=== PATIENT | female | born 1995 | race American Indian/Alaskan Native ===

== ENCOUNTER 2020-04-27 11:56 | Emergency (ER) | payer OTHER ==
--- NOTE | 2020-04-27 12:23 | Emergency Department Report ---
ED Back Pain/Injury HPI - General Chief Complaint: Back Pain/Injury Stated Complaint: WEAKNESS Time Seen by Provider: 04/27/20 12:13 Source: patient Limitations: No Limitations - History of Present Illness Initial Comments: This is a 25-year-old female nontoxic, well nourished in appearance, no acute signs of distress presents to the ED with c/o of acute on chronic lower back p ain. Patient stated that the past 2 days he was moving and developed this pain. Patient also has a secondary complaint of generalized weakness. Patient stated has history of anemia. Patient is tachycardic in the ER. Patient denies any radiation of pain. Patient denies any trauma. Denies any bladder or bowel instability. Patient denies any urinary symptoms. Denies any fever, chills, nausea, vomiting, headache, stiff neck, chest pain or shortness of breath. Patient denies any numbness or tingling. Denies any allergies. Denies significant past medical history. MD Complaint: back pain -: days(s) Similar Symptoms Previously: Yes Radiation: none Severity: mild Severity scale (0 -10): 3 Quality: aching Consistency: intermittent Improves With: immobilization, sitting upright Worsens With: movement, walking Context: while lifting, turning/twisting Associated Symptoms: weakness. denies: confusion, chest pain, numbness, difficulty walking, cough, difficulty urinating, diaphoresis, incontinence, fever/chills, constipation, headaches, abdominal pain, loss of appetite, malaise, nausea/vomiting, rash, seizure, shortness of breath, syncope - Related Data Previous Rx's Medication Instructions Recorded Last Taken Type cephALEXin [Keflex] 500 mg PO Q8HR #21 cap 04/27/20 Unknown Rx Allergies Allergy/AdvReac Type Severity Reaction Status Date / Time No Known Allergies Allergy Unverified 04/27/20 12:15 ED Review of Systems ROS: Stated complaint: WEAKNESS Other details as noted in HPI Comment: All other systems reviewed and negative Constitutional: weakness. denies: chills, fever Eyes: denies: eye pain, eye discharge, vision change ENT: denies: ear pain, throat pain Respiratory: denies: cough, shortness of breath, wheezing Cardiovascular: denies: chest pain, palpitations Endocrine: no symptoms reported Gastrointestinal: denies: abdominal pain, nausea, diarrhea Genitourinary: denies: urgency, dysuria, discharge Musculoskeletal: back pain. denies: joint swelling, arthralgia Skin: denies: rash, lesions Neurological: denies: headache, weakness, paresthesias Psychiatric: denies: anxiety, depression Hematological/Lymphatic: denies: easy bleeding, easy bruising ED Past Medical Hx - Past Medical History Previous Medical History?: No - Surgical History Past Surgical History?: No - Social History Smoking Status: Never Smoker Substance Use Type: None - Medications Home Medications: Home Medications Medication Instructions Recorded Confirmed Last Taken Type cephALEXin [Keflex] 500 mg PO Q8HR #21 cap 04/27/20 Unknown Rx ED Physical Exam - General Limitations: No Limitations General appearance: alert, in no apparent distress - Head Head exam: Present: atraumatic, normocephalic - Eye Eye exam: Present: normal appearance - Neck Neck exam: Present: normal inspection, full ROM. Absent: tenderness, meningismus, lymphadenopathy - Respiratory Respiratory exam: Present: normal lung sounds bilaterally. Absent: respiratory distress, wheezes, rales, rhonchi, stridor, chest wall tenderness, accessory muscle use, decreased breath sounds, prolonged expiratory - Cardiovascular Cardiovascular Exam: Present: normal rhythm, tachycardia, normal heart sounds. Absent: systolic murmur, diastolic murmur, rubs, gallop - GI/Abdominal GI/Abdominal exam: Present: soft, normal bowel sounds. Absent: distended, tenderness, guarding, rebound, rigid, diminished bowel sounds - Extremities Exam Extremities exam: Present: normal inspection, full ROM, normal capillary refill. Absent: tenderness - Back Exam Back exam: Present: normal inspection, full ROM, paraspinal tenderness (Left lumbar paraspinal). Absent: tenderness, CVA tenderness (R), CVA tenderness (L), muscle spasm, vertebral tenderness, rash noted - Expanded Back Exam Expanded Back exam: Absent: saddle anesthesia Back exam: Negative Straight Leg Raising: Left, Right - Neurological Exam Neurological exam: Present: alert, oriented X3, normal gait - Psychiatric Psychiatric exam: Present: normal affect, normal mood - Skin Skin exam: Present: warm, dry, intact, normal color. Absent: rash ED Course Vital Signs 04/27/20 04/27/20 12:13 15:09 Temperature 98.3 F Pulse Rate 115 H 105 H Respiratory 18 18 Rate Blood Pressure 154/86 Blood Pressure 140/90 [Left] O2 Sat by Pulse 100 98 Oximetry - Reevaluation(s) Reevaluation #1: 04/27/20 13:14 Patient is speaking in full sentences with no signs of distress noted. ED Medical Decision Making - Lab Data Result diagrams: 04/27/20 12:39 04/27/20 12:39 Lab Results 04/27/20 04/27/20 04/27/20 Range/Units 12:39 12:39 12:39 WBC 8.6 (4.5-11.0) K/mm3 RBC 4.61 (3.65-5.03) M/mm3 Hgb 11.1 (10.1-14.3) gm/dl Hct 35.5 (30.3-42.9) % MCV 77 L (79-97) fl MCH 24 L (28-32) pg MCHC 31 (30-34) % RDW 17.0 H (13.2-15.2) % Plt Count 380 (140-440) K/mm3 Lymph % (Auto) 26.5 (13.4-35.0) % [place] % (Auto) 5.7 (0.0-7.3) % Eos % (Auto) 6.6 H (0.0-4.3) % Baso % (Auto) 0.7 (0.0-1.8) % Lymph # (Auto) 2.3 (1.2-5.4) K/mm3 [place] # (Auto) 0.5 (0.0-0.8) K/mm3 Eos # (Auto) 0.6 H (0.0-0.4) K/mm3 Baso # (Auto) 0.1 (0.0-0.1) K/mm3 Seg Neutrophils % 60.5 (40.0-70.0) % Seg Neutrophils # 5.2 (1.8-7.7) K/mm3 Sodium 143 (137-145) mmol/L Potassium 3.8 (3.6-5.0) mmol/L Chloride 105.3 (98-107) mmol/L Carbon Dioxide 29 (22-30) mmol/L Anion Gap 13 mmol/L BUN 9 (7-17) mg/dL Creatinine 0.7 (0.6-1.2) mg/dL Estimated GFR > 60 ml/min BUN/Creatinine Ratio 13 % Glucose 94 (65-100) mg/dL Calcium 9.1 (8.4-10.2) mg/dL HCG, Qual Negative (Negative) Urine Color (Yellow) Urine Turbidity (Clear) Urine pH (5.0-7.0) Ur Specific [place] (1.003-1.030) Urine Protein (Negative) mg/dL Urine Glucose (UA) (Negative) mg/dL Urine Ketones (Negative) mg/dL Urine Blood (Negative) Urine Nitrite (Negative) Urine Bilirubin (Negative) Urine Urobilinogen (<2.0) mg/dL Ur Leukocyte Esterase (Negative) Urine WBC (Auto) (0.0-6.0) /HPF Urine RBC (Auto) (0.0-6.0) /HPF U Epithel Cells (Auto) (0-13.0) /HPF Calcium Oxalate Crystal Urine Mucus /HPF 04/27/20 Range/Units 14:23 WBC (4.5-11.0) K/mm3 RBC (3.65-5.03) M/mm3 Hgb (10.1-14.3) gm/dl Hct (30.3-42.9) % MCV (79-97) fl MCH (28-32) pg MCHC (30-34) % RDW (13.2-15.2) % Plt Count (140-440) K/mm3 Lymph % (Auto) (13.4-35.0) % [place] % (Auto) (0.0-7.3) % Eos % (Auto) (0.0-4.3) % Baso % (Auto) (0.0-1.8) % Lymph # (Auto) (1.2-5.4) K/mm3 [place] # (Auto) (0.0-0.8) K/mm3 Eos # (Auto) (0.0-0.4) K/mm3 Baso # (Auto) (0.0-0.1) K/mm3 Seg Neutrophils % (40.0-70.0) % Seg Neutrophils # (1.8-7.7) K/mm3 Sodium (137-145) mmol/L Potassium (3.6-5.0) mmol/L Chloride (98-107) mmol/L Carbon Dioxide (22-30) mmol/L Anion Gap mmol/L BUN (7-17) mg/dL Creatinine (0.6-1.2) mg/dL Estimated GFR ml/min BUN/Creatinine Ratio % Glucose (65-100) mg/dL Calcium (8.4-10.2) mg/dL HCG, Qual (Negative) Urine Color [place] (Yellow) Urine Turbidity Slightly-cloudy (Clear) Urine pH 6.0 (5.0-7.0) Ur Specific [place] 1.034 H (1.003-1.030) Urine Protein 100 mg/dl (Negative) mg/dL Urine Glucose (UA) Neg (Negative) mg/dL Urine Ketones Neg (Negative) mg/dL Urine Blood Neg (Negative) Urine Nitrite Pos (Negative) Urine Bilirubin Neg (Negative) Urine Urobilinogen < 2.0 (<2.0) mg/dL Ur Leukocyte Esterase Tr (Negative) Urine WBC (Auto) 2.0 (0.0-6.0) /HPF Urine RBC (Auto) 4.0 (0.0-6.0) /HPF U Epithel Cells (Auto) 3.0 (0-13.0) /HPF Calcium Oxalate Crystal 1+ Urine Mucus 3+ /HPF - Medical Decision Making This is a 25-year-old female that presents with UTI. Patient is stable and was examined by me. UA obtained. Patient does not have any CVA tenderness. No signs or symptoms of pyelonephritis. Patient be treated with Keflex. Patient was instructed to Follow-up with a primary care doctor in 3-5 days or if symptoms worsen and continue return to emergency room as soon as possible. At time of discharge, the patient does not seem toxic or ill in appearance. No acute signs of distress noted. Patient agrees to discharge treatment plan of care. No further questions noted by the patient. Critical care attestation.: If time is entered above; I have spent that time in minutes in the direct care of this critically ill patient, excluding procedure time. ED Disposition Clinical Impression: UTI (urinary tract infection) Qualifiers: Urinary tract infection type: acute cystitis Hematuria presence: without hematuria Qualified Code(s): N30.00 - Acute cystitis without hematuria Disposition: TO HOME OR SELFCARE Is pt being admited?: No Does the pt Need Aspirin: No Condition: Stable Instructions: Urinary Tract Infection, Adult, [id number] Additional Instructions: Follow-up with a primary care doctor in 3-5 days or if symptoms worsen and continue return to emergency room as soon as possible. Prescriptions: cephALEXin [Keflex] 500 mg PO Q8HR #21 cap Referrals: PRIMARY CAREMD [Referring] - 3-5 Days BETTY REED MD [Staff Physician] - 3-5 Days Time of Disposition: 15:14
[2020-04-27] MEDS ORDERED: SODIUM CHLORIDE 0.9% 1000 ML 1,000 ML IV ONE (12:41)
[2020-04-27] MEDS ORDERED: dexAMETHasone 20 MG/5 ML VIAL IV ONE (12:41)
[2020-04-27] MEDS ORDERED: KETOROLAC 30 MG/1 ML INJ IV ONE (12:41)
[2020-04-27 13:00] LABS: Basophils # (Auto) 0.1 K/mm3 (0.0-0.1); Basophils % (Auto) 0.7 % (0.0-1.8); Eosinophils # (Auto) 0.6 K/mm3 (0.0-0.4); Eosinophils % (Auto) 6.6 % (0.0-4.3); Hematocrit 35.5 % (30.3-42.9); Hemoglobin 11.1 gm/dl (10.1-14.3); Lymphocytes # (Auto) 2.3 K/mm3 (1.2-5.4); Lymphocytes % (Auto) 26.5 % (13.4-35.0); Mean Corpuscular HGB Conc 31 % (30-34); Mean Corpuscular Volume 77 fl (79-97); Monocytes # (Auto) 0.5 K/mm3 (0.0-0.8); Monocytes % (Auto) 5.7 % (0.0-7.3); Platelet Count 380 K/mm3 (140-440); Red Blood Count 4.61 M/mm3 (3.65-5.03)
[2020-04-27 13:18] LABS: Blood Urea Nitrogen 9 mg/dL (7-17); Calcium 9.1 mg/dL (8.4-10.2); Hemolysis Index 26
[2020-04-27 13:19] LABS: BUN/Creatinine Ratio 13
[2020-04-27 14:46] LABS: Bilirubin,Urine NEG (Negative); Blood,Urine NEG (Negative); Calcium Oxalate Crystals,Urine 1+; Color,Urine Amber (Yellow); Mucus,Urine 3+ /HPF; Urobilinogen,Urine < 2.0 mg/dL (<2.0)
[2020-04-27 15:10] VITALS: BP 140/90
== END 2020-04-27 15:00 | disposition home or self-care (01) ==
LOC: ED 11:56
DX: N39.0 Urinary tract infection, site not specified (principal); Z79.899 Other long term (current) drug therapy
CPT/HCPCS: 36415; 80048; 81001; 84703; 85025; 99283

== ENCOUNTER 2020-06-07 10:58 | Emergency (ER) | payer SELFPAY ==
[2020-06-07 11:10] VITALS: BP 153/95
[2020-06-07] MEDS ORDERED: KETOROLAC 30 MG/1 ML INJ IM ONE (11:10)
--- NOTE | 2020-06-07 11:13 | Emergency Department Report ---
ED General Adult HPI - General Chief complaint: Back Pain/Injury Stated complaint: BACK/ SUSANA LEG PAIN Time Seen by Provider: 06/07/20 11:09 Source: patient Mode of arrival: Ambulatory Limitations: No Limitations - History of Present Illness Initial comments: 25-year-old immunocompetent female patient with history of chronic back pain presents to the emergency department with complaints of an acute exacerbation of her chronic back pain worsening over the course the last week. There is no new fall, trauma, or injury. Patient states she was unable to drive comfortably this morning due to the pain, prompting her to come to the emergency department. She is currently taking Flexeril and [id number] ibuprofen with limited relief. She has not consulted a primary care provider regarding her chronic back pain. Denies fever, chills, saddle anesthesia, bladder/bowel incontinence, urinary retention, paresthesias, numbness, urinary symptoms. Denies all other complaints at this time. - Related Data Previous Rx's Medication Instructions Recorded Last Taken Type cephALEXin [Keflex] 500 mg PO Q8HR #21 cap 04/27/20 Unknown Rx Lidocaine [Lidoderm] 1 each TP PRN PRN #20 adh..patch 06/07/20 Unknown Rx Naproxen 500 mg PO BID #20 tablet 06/07/20 Unknown Rx Allergies Allergy/AdvReac Type Severity Reaction Status Date / Time No Known Allergies Allergy Verified 06/07/20 11:04 ED Review of Systems ROS: Stated complaint: BACK/ SUSANA LEG PAIN Other details as noted in HPI Other: GENERAL: Negative for fever. CARDIOVASCULAR: Negative for chest pain. PULMONARY: Negative for shortness of breath. GASTROINTESTINAL: Negative for abdominal pain. MUSCULOSKELETAL: Positive for back pain. NEUROLOGICAL: Negative for headache. INTEGUMENTARY: Negative for rash. ED Past Medical Hx - Past Medical History Previous Medical History?: No - Surgical History Past Surgical History?: No - Social History Smoking Status: Never Smoker Substance Use Type: Alcohol - Medications Home Medications: Home Medications Medication Instructions Recorded Confirmed Last Taken Type cephALEXin [Keflex] 500 mg PO Q8HR #21 cap 04/27/20 Unknown Rx Lidocaine [Lidoderm] 1 each TP PRN PRN #20 adh..patch 06/07/20 Unknown Rx Naproxen 500 mg PO BID #20 tablet 06/07/20 Unknown Rx ED Physical Exam - General Limitations: No Limitations - Other Other exam information: General: Awake, appropriately interactive, no acute distress. Neck: Supple. Full range of motion intact. Cardiovascular: Normal peripheral perfusion. Pulmonary: No respiratory distress. Patient is speaking normally without use of accessory muscles. Skin: No apparent rashes or lesions. Neurological: No facial asymmetry. Speech is clear. Follows commands. Patient is alert and oriented. Musculoskeletal: Moves all four extremities spontaneously with normal range of motion. Back: No reproducible midline or paraspinal tenderness. No CVA tenderness. No palpable muscle spasm. No step-offs. No saddle anesthesia. Ambulatory without assistance. Psych: Cooperative. Appropriate mood and affect. ED Course Vital Signs 06/07/20 06/07/20 11:08 11:59 Temperature 97.8 F Pulse Rate 105 H 76 Respiratory 18 Rate Blood Pressure 153/95 O2 Sat by Pulse 100 Oximetry ED Medical Decision Making - Medical Decision Making Differential diagnosis including but not limited to: cauda equina syndrome, spinal epidural abscess, discitis, pyelonephritis, nephrolithiasis, disc herniation, sprain/strain Patient presents to the emergency department with complaints of an acute exacerbation of her chronic back pain. No new fall, trauma, or injury. Mild tachycardia noted on arrival. Repeat heart rate 76 bpm at 11:58 after Toradol. Vital signs otherwise stable. She is afebrile. She is ambulatory without assistance and neurovascularly intact. Patient states her current pain is consistent with her chronic back pain, which has been present for years. There is no clinical indication for further work-up on an emergent basis at this time. Patient will be discharged home with medications for symptomatic management as well as referrals for primary care and physical therapy. Emphasized the impor tance of arranging for outpatient follow-up for long-term management of her chronic condition. Patient expressed understanding and is agreeable to plan of care. Strict return precautions provided. The patients back pain is not associated with numbness, tingling, or loss of strength. There is no acute urinary incontinence or retention and no bowel incontinence or retention. There is no saddle anesthesia. The patient is afebrile and neurovascularly intact. No clinical evidence for acute nerve compression (such as cauda equine syndrome) or infection (such as epidural abscess). It has been explained to the patient that advanced imaging such as CT or MRI is not indicated at this time but should be considered if symptoms recur or worsen. Discharged home with appropriate prescriptions and instructions to follow up with primary care provider. Strict return precautions provided. Emphasized the importance of outpatient follow-up and specific signs/symptoms that should warrant immediate return to the emergency department. Patient expressed understanding and was given the opportunity to ask questions, all of which were satisfactorily answered prior to discharge home. Critical care attestation.: If time is entered above; I have spent that time in minutes in the direct care of this critically ill patient, excluding procedure time. ED Disposition Clinical Impression: Acute exacerbation of chronic low back pain Disposition: TO HOME OR SELFCARE Is pt being admited?: No Does the pt Need Aspirin: No Condition: Stable Instructions: Chronic Back Pain, [id number] Additional Instructions: Take Tylenol every 4 hours as needed for pain. Take Naprosyn twice daily with food as needed for pain. Stop taking Ibuprofen while on Naprosyn. Apply Lidoderm patches to affected area as needed. Apply heat to affected area as needed. Follow-up with primary care provider and physical therapist this week. Call tomorrow to schedule an appointment. Return to the emergency department immediately for new or worsening symptoms. Specifically, return to the emergency department immediately for fever, worsening pain, numbness, tingling, loss of strength, difficulty using the bathroom, difficulty walking, or any other concerns. Prescriptions: Lidocaine [Lidoderm] 1 each TP PRN PRN #20 adh..patch PRN Reason: Pain , Severe (7-10) Naproxen 500 mg PO BID #20 tablet Referrals: PRIMARY CAREMD [Primary Care Provider] - 3-5 Days GARO JURADO MD [Staff Physician] - 3-5 Days THERAPY, PHYSICAL [Other] - 3-5 Days Time of Disposition: 11:58
== END 2020-06-07 12:01 | disposition home or self-care (01) ==
LOC: ED 10:58
DX: M54.5 Low back pain (principal); G89.29 Other chronic pain; Z79.899 Other long term (current) drug therapy
CPT/HCPCS: 96372; 99282; J1885

== ENCOUNTER 2020-09-25 10:50 | Emergency (ER) | payer SELFPAY ==
[2020-09-25 11:11] VITALS: BP 142/85
--- NOTE | 2020-09-25 12:43 | Emergency Department Report ---
ED Back Pain/Injury HPI - General Chief Complaint: Weakness Stated Complaint: WEAKNESS Time Seen by Provider: 09/25/20 12:28 Source: patient Limitations: No Limitations - History of Present Illness Initial Comments: Chief complaint: "I have been dealing with this for a year." HPI: This is a 25-year-old female with history of anemia who presents with lower back pain for 1 year. Recently she has had fatigue. She just feels overall drained. Lower back pain feels achy. Worse in the morning. It feels as if she has to "warm up my body". No radiation of the pain. She has been evaluated several times by billiard player. Accoring to her report, autoimmune disease was ruled out with lab testing. Her grandmother had a history of RA. Rubber Goods Inspector has prescribed Flexeril and gabapentin. Both of these medications really help the back pain for some time. However she feels as if her body "get used to the medicine". She denies urinary or stool incontinence. She denies trauma. She denies fever. Rubber Goods Inspector recommended referral to spine surgeon. She does not have a primary care physician. Naproxen worked well until it caused her GI issues. She has now taken ibuprofen which also helps the back pain. 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 MD Complaint: back pain -: Gradual, year(s) (1 year) Severity: mild Quality: aching Consistency: intermittent Improves With: medication, movement Associated Symptoms: other (Fatigue) - Related Data Previous Rx's Medication Instructions Recorded Last Taken Type cephALEXin [Keflex] 500 mg PO Q8HR #21 cap 04/27/20 Unknown Rx Lidocaine [Lidoderm] 1 each TP PRN PRN #20 adh..patch 06/07/20 Unknown Rx Naproxen 500 mg PO BID #20 tablet 06/07/20 Unknown Rx Ketorolac [Toradol] 10 mg PO Q6H PRN #15 tablet 08/04/20 Unknown Rx methOCARBAMOL [Robaxin] 750 mg PO Q8H PRN #21 tablet 08/04/20 Unknown Rx Allergies Allergy/AdvReac Type Severity Reaction Status Date / Time No Known Allergies Allergy Verified 06/07/20 11:04 ED Review of Systems ROS: Stated complaint: WEAKNESS Other details as noted in HPI Comment: All other systems reviewed and negative Constitutional: denies: chills, fever Respiratory: denies: cough, shortness of breath Cardiovascular: denies: chest pain Gastrointestinal: denies: abdominal pain Neurological: denies: headache ED Past Medical Hx - Past Medical History Previous Medical History?: Yes Additional medical history: Anemia - Surgical History Past Surgical History?: No - Family History Family history: other (Grandmother has history of rheumatoid arthritis) - Social History Smoking Status: Never Smoker Substance Use Type: None - Medications Home Medications: Home Medications Medication Instructions Recorded Confirmed Last Taken Type cephALEXin [Keflex] 500 mg PO Q8HR #21 cap 04/27/20 Unknown Rx Lidocaine [Lidoderm] 1 each TP PRN PRN #20 adh..patch 06/07/20 Unknown Rx Naproxen 500 mg PO BID #20 tablet 06/07/20 Unknown Rx Ketorolac [Toradol] 10 mg PO Q6H PRN #15 tablet 08/04/20 Unknown Rx methOCARBAMOL [Robaxin] 750 mg PO Q8H PRN #21 tablet 08/04/20 Unknown Rx ED Physical Exam - General Limitations: No Limitations General appearance: alert, in no apparent distress, other (Pleasant comfortable no acute distress ) - Head Head exam: Present: atraumatic, normocephalic - Eye Eye exam: Present: normal appearance - ENT ENT exam: Present: mucous membranes moist - Neck Neck exam: Present: normal inspection, full ROM - Respiratory Respiratory exam: Present: normal lung sounds bilaterally. Absent: respiratory distress, wheezes, rales, rhonchi - Cardiovascular Cardiovascular Exam: Present: regular rate, normal rhythm, normal heart sounds. Absent: systolic murmur, diastolic murmur, rubs, gallop - GI/Abdominal GI/Abdominal exam: Present: soft, normal bowel sounds. Absent: distended, tenderness, guarding, rebound - Extremities Exam Extremities exam: Present: normal inspection - Back Exam Back exam: Present: normal inspection, full ROM. Absent: tenderness, CVA tenderness (R), CVA tenderness (L), muscle spasm, paraspinal tenderness, vertebral tenderness - Neurological Exam Neurological exam: Present: alert, oriented X3, normal gait - Psychiatric Psychiatric exam: Present: normal affect, normal mood - Skin Skin exam: Present: warm, dry, intact, normal color. Absent: rash ED Course Vital Signs 09/25/20 11:08 Temperature 98.5 F Pulse Rate 120 H Respiratory 20 Rate Blood Pressure 142/85 [Right] O2 Sat by Pulse 99 Oximetry ED Medical Decision Making - EKG Data -: EKG Interpreted by Me EKG shows normal: sinus rhythm, axis, intervals, QRS complexes, ST-T waves Rate: tachycardia - EKG Data 09/25/20 12:42 EKG obtained 1122 EKG interpreted by me Sinus tachycardia rate 110 bpm normal axis normal intervals no ST-T sign ischemia no evidence of right heart strain - Medical Decision Making Clinical impression: Lumbar degenerative disc diseae, patient will also need outpatient evaluation for possible endocrine conditions such as diabetes mellitus or hypothyroidism. Patient given referral to spine surgeon Dr. Tong. Patient also given referral to outpatient medicine physician Dr. Robbins EKG obtained per triage protocol no evidence of cardiac injury Critical care attestation.: If time is entered above; I have spent that time in minutes in the direct care of this critically ill patient, excluding procedure time. ED Disposition Clinical Impression: Lumbar degenerative disc disease Disposition: DC- TO HOME OR SELFCARE Is pt being admited?: No Does the pt Need Aspirin: No Condition: Stable Instructions: Degenerative Disk Disease Referrals: BETTY ROBBINS MD [Staff Physician] - 3-5 Days VIJAY TONG II, MD [Staff Physician] - 3-5 Days Forms: Work/School Release Form(ED)
--- NOTE | 2020-09-28 11:40 | Electrocardiograph Report ---
[facility] Test Date: 2020-09-25 Test Time: 11:22:22 Pat Name: ERINN WOOD Department: Room: Gender: F Printing Shop Supervisor: : 1995 Requested By: ANIVAL DURBIN Order Number: [id number] Reading MD: Freddie Mccormick Measurements Intervals [place] Rate: 111 P: 71 [place]: 175 QRS: 24 QRSD: 99 T: 51 QT: 331 QTc: 449 Interpretive Statements Sinus tachycardia Probable left atrial enlargement No previous ECG available for comparison Electronically Signed On 09-28-2020 11:40:28 EDT by Freddie Mccormick
== END 2020-09-25 13:09 | disposition home or self-care (01) ==
LOC: ED 10:50
DX: M51.36 Other intervertebral disc degeneration, lumbar region (principal); R53.83 Other fatigue; Z86.2 Personal history of diseases of the blood and blood-forming organs and certain disorders involving the immune mechanism; Z79.899 Other long term (current) drug therapy
CPT/HCPCS: 93005; 99282